=== PATIENT | male | born 1980 | race Caucasian/White ===

== ENCOUNTER → 2024-03-16 06:27 | Day surgery (SDC) | payer OTHER, SELFPAY | LOC: GI 06:27 | PROVIDERS: ATTENDING PHYSICIAN Internal Medicine Gastroenterology | DX: Z12.11 Encounter for screening for malignant neoplasm of colon (principal); D12.0 Benign neoplasm of cecum; K57.30 Diverticulosis of large intestine without perforation or abscess without bleeding; K64.0 First degree hemorrhoids; K56.2 Volvulus; K90.41 Non-celiac gluten sensitivity; K21.00 Gastro-esophageal reflux disease with esophagitis, without bleeding; K22.89 Other specified disease of esophagus; K31.7 Polyp of stomach and duodenum; K31.89 Other diseases of stomach and duodenum; R13.10 Dysphagia, unspecified | CPT/HCPCS: 43239; G0121; 88305 ==

== ENCOUNTER 2024-08-19 06:29 | Day surgery (SDC) | payer OTHER, SELFPAY ==
[2024-08-19 09:15] VITALS: BMI 33.5
[2024-08-19 09:23] VITALS: BP 125/87
[2024-08-19 09:34] VITALS: BMI 33.5
[2024-08-19 12:31] VITALS: BP 113/92
[2024-08-19 12:45] VITALS: BP 121/95
[2024-08-19 13:00] VITALS: BP 134/102
[2024-08-19 13:15] VITALS: BP 126/96
== END 2024-08-19 14:15 | disposition home or self-care (01) ==
LOC: SDS 06:29
PROVIDERS: ATTENDING PHYSICIAN Internal Medicine Gastroenterology
DX: D12.2 Benign neoplasm of ascending colon (principal); K64.0 First degree hemorrhoids
CPT/HCPCS: 45390; 45385; 88305